=== PATIENT | male | born 1990 | race Caucasian/White ===

== ENCOUNTER 2022-01-15 13:14 | Emergency (ER) | payer OTHER, SELFPAY ==
--- NOTE | ~2022-01-15 | CT_ITS ---
EXAMINATION: CT FACIAL BONES WITH CONTRAST CLINICAL INFORMATION: Right jaw swelling. COMPARISON: None TECHNIQUE: Axial images were obtained through the facial bones following the intravenous administration of 85 mL Omnipaque 350 contrast. Coronal and sagittal reformatted images generated. This CT examination was performed using dose optimization techniques as appropriate, variously including the following: *Automated exposure control *Adjustment of mA and/or kV according to patient size (this includes techniques or standardized protocols for targeted exams where dose is matched to indication/reason for exam; i.e. extremities or head) *Use of iterative reconstruction technique DLP: 295 mGy-cm FINDINGS: No acute facial bone fracture. Mucous retention cyst in the bilateral maxillary air trauma, largest on the left measuring approximately 2.3 cm in size. Paranasal sinuses otherwise normally aerated. Mastoid air cells normally aerated. Globes and retro-orbital structures intact. Subtle large bilobed peripherally enhancing structure consistent with a large abscess at the angle of the mandible that measures approximately 4.6 x 3 cm in transverse dimension. The collection straddles the angle the mandible exerting mass effect on the posterior right floor the mouth and oropharynx, which is partially effaced and slightly displaced leftward. The external portion of the collection extends into the masseter muscle. There is extensive overlying subcutaneous edema and thickening of the right platysma muscle. Findings associated with extensive dental caries throughout the maxillary mandibular teeth. There is periapical lucency with dehiscence of the lingual surface of the mandible involving the root of the right second molar tooth consistent with dental abscess. Visualized intracranial contents are grossly unremarkable-limited assessment. Asymmetrically prominent right cervical and submandibular lymph nodes, likely reactive. No fracture or suspicious osseous lesion. CT/CT facial bones w IV con IMPRESSION: 1. Large bilobed/dumbbell shaped abscess centered around the angle of the right mandible exerting mass effect on the posterior right floor of mouth and oropharynx extending superficially within the masseter muscle, presumably related to a dental abscess of an adjacent right second maxillary molar tooth. 2. Extensive subcutaneous edema in the right base and neck with thickening of the platysma muscle and reactive right cervical lymphadenopathy.
[2022-01-15 14:40] VITALS: BP 128/68; PULSE 61; RESP 16; TEMP 37.8; O2SAT 93; BMI 30.4
--- NOTE | 2022-01-15 15:18 | ED_ITS ---
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 They have not seen a dentist for this. Patient has had increased swelling to the right lower jaw. He went to another local hospital 4 days ago and has been on antibiotics no previous visits here. MD Complaint: tooth pain Teeth map: 1. Related Data Allergies Allergy/AdvReac Type Severity Reaction Status Date / Time No Known Allergies Allergy Unverified 12/29/19 19:29 [No Known Allergies*] Review of Systems Review of Systems: Review of systems: General: Patient denies any fever chills recent illness or falls Musculoskeletal: Denies back pain or body aches or other injuries HEENT: Right lower dental pain spitting into a cup denies headache, runny nose, ear pain Respiratory: denies shortness of breath, cough Cardiovascular: no chest pain or palpitations : denies dysuria, frequency Abdomen: no nausea vomiting denies abdominal pain Extremities: no swelling, no pain Skin: no diaphoresis Yes all other systems are reviewed and are negative [facility] Past Medical History Medical History (Updated 01/15/22 @ 18:37 by Bejni Avendano DO) Heart murmur Social History Social History Alcohol intake: current Alcohol intake frequency: 0-2 drinks per day Alcohol type: hard liquor Patient Tobacco Use Status: Current everyday Tobacco user Use of substances other than those prescribed or required for medical reasons: Yes Substance Use Type: Crack/Cocaine and Heroin Advance Directives: No Advance Directives Information Provided: No Physical Exam Vital Signs: Vital Signs: Last Vital Signs Temp 100.1 F 01/15/22 14:40 Pulse 60 01/15/22 16:04 Resp 14 01/15/22 16:04 BP 125/66 01/15/22 16:04 Pulse Ox 96 01/15/22 16:04 O2 Del Method 01/15/22 16:04 BMI result Body Mass Index 30.4 General: somnolent sleeping in no signs of distress HEENT: Normocephalic atraumatic right jaw swollen tender he is able to open his mouth no swelling under his tongue discharge from right posterior lower jaw with swelling seen when looking at face concerning for abscess Neck: No signs of JVD, no masses no tenderness or lymphadenopathy Cardiovascular: Regular rate and rhythm Respiratory: Clear to auscultation bilaterally Abdomen: Soft nontender no masses Extremities: Normal pedal pulses no signs of edema Skin: Dry warm no rashes Back: No tenderness full ROM MDM - Dental/Oral MDM Narrative Medical decision making narrative: Concern for dental abscess we don't have dental here. He is far too sleepy as well he has track mariano on both hands as well. I will give some narcan to wake him up. I will give fluids check labs blood cultures lactic acid cbc and send for CT facial bones. He want to another hospital a few days go for antibiotics. Labs look remarkably good no lactic acidosis normal WBC count he has non specific inflammatory marker elevation. He is also asking for food. 182 CT shows large abscess extending into right mandible likely for mouth and oropharynx. 182 Call to [facility] they are closed to transfers at this time. 182 I spoke with [facility] about potential transfer for OMF or dental. They accepted the patient Dr. Mane Differential Diagnosis Differential diagnosis: Likely dental caries, toothache, dental abscess and fracture of tooth Medical Records Attestation: I reviewed the patient's medical records. Lab Data Result diagrams: 01/15/22 15:58 01/15/22 15:58 Labs: Lab Results 01/15/22 01/15/22 01/15/22 Range/Units 15:40 15:58 15:58 WBC 8.5 (4.8-10.8) X10*3/uL RBC 4.42 L (4.60-5.80) X10*6/uL Hgb 13.2 L (14.0-18.0) g/dl Hct 39.1 L (42.0-52.0) % MCV 88.5 (80.0-98.0) fL MCH 29.9 (27.0-33.0) pg MCHC 33.8 (31.0-36.0) g/dl RDW 13.5 (11.0-16.0) % Plt Count 224 (160-400) X10*3/uL MPV 9.5 (9.4-12.4) fL Immature Gran % (Auto) 0.4 (0.0-0.4) % Neut % (Auto) 65.6 (45-73) % Lymph % (Auto) 22.6 (20-40) % Hickman % (Auto) 11.0 (2-11) % Eos % (Auto) 0.2 (0-4) % Baso % (Auto) 0.2 (0-2) % Lymph # (Auto) 1.9 (1.2-4.9) X10*3/uL Hickman # (Auto) 0.9 (0.1-1.2) X10*3/uL Eos # (Auto) 0.0 (0.0-0.4) X10*3/uL Baso # (Auto) 0.0 (0.0-0.2) X10*3/uL Abs Immat Gran (auto) 0.03 (0.00-0.03) X10*3/uL Absolute Neuts (auto) 5.6 (2.0-8.3) x10*3/uL Absolute Nucleated RBC 0.000 (0.0-0.012) X10*3/uL Nucleated RBC % (auto) 0.0 (0.0-0.2) /100WBC ESR 83 H (0-15) MM/HR Sodium (135-145) mmol/L Potassium (3.3-5.1) mmol/L Chloride (96-108) mmol/L Carbon Dioxide (22-29) mmol/L Anion Gap (12-20) BUN (9-16) mg/dL Creatinine (0.5-1.4) mg/dL Estim Creat Clear Calc Estimated GFR Random Glucose (60-115) mg/dL Lactic Acid (0.5-2.0) mmol/L Calcium (8.4-10.2) mg/dL Total Bilirubin (0.0-1.0) mg/dL AST (5-37) U/L ALT (0-40) U/L Alkaline Phosphatase (39-117) U/L Total Protein (6.5-8.0) g/dL Albumin (3.5-5.0) g/dL COVID-19 (TIMO) Negative (Negative) COVID-19 Clin Com See Note 01/15/22 01/15/22 Range/Units 15:58 15:58 WBC (4.8-10.8) X10*3/uL RBC (4.60-5.80) X10*6/uL Hgb (14.0-18.0) g/dl Hct (42.0-52.0) % MCV (80.0-98.0) fL MCH (27.0-33.0) pg MCHC (31.0-36.0) g/dl RDW (11.0-16.0) % Plt Count (160-400) X10*3/uL MPV (9.4-12.4) fL Immature Gran % (Auto) (0.0-0.4) % Neut % (Auto) (45-73) % Lymph % (Auto) (20-40) % Hickman % (Auto) (2-11) % Eos % (Auto) (0-4) % Baso % (Auto) (0-2) % Lymph # (Auto) (1.2-4.9) X10*3/uL Hickman # (Auto) (0.1-1.2) X10*3/uL Eos # (Auto) (0.0-0.4) X10*3/uL Baso # (Auto) (0.0-0.2) X10*3/uL Abs Immat Gran (auto) (0.00-0.03) X10*3/uL Absolute Neuts (auto) (2.0-8.3) x10*3/uL Absolute Nucleated RBC (0.0-0.012) X10*3/uL Nucleated RBC % (auto) (0.0-0.2) /100WBC ESR (0-15) MM/HR Sodium 137 (135-145) mmol/L Potassium 3.9 (3.3-5.1) mmol/L Chloride 99 (96-108) mmol/L Carbon Dioxide 24 (22-29) mmol/L Anion Gap 18 (12-20) BUN 10 (9-16) mg/dL Creatinine 0.79 (0.5-1.4) mg/dL Estim Creat Clear Calc 145.4 Estimated GFR > 60 Random Glucose 95 (60-115) mg/dL Lactic Acid 1.0 (0.5-2.0) mmol/L Calcium 8.8 (8.4-10.2) mg/dL Total Bilirubin 0.7 (0.0-1.0) mg/dL AST 32 (5-37) U/L ALT 26 (0-40) U/L Alkaline Phosphatase 73 (39-117) U/L Total Protein 8.8 H (6.5-8.0) g/dL Albumin 4.0 (3.5-5.0) g/dL COVID-19 (TIMO) (Negative) COVID-19 Clin Com Critical Care Time Critical Care Time Critical Care Time: Yes Total Critical Care Time: 38 Attestation: Patient with obvius abscess likely under the influence as he slept the entire time in the eD found to have a large abscess requiring transfer to dental absess extending into mandible., Call to multiple hospitals for transfer. Discharge Plan Discharge Clinical Impression: Dental caries, Abscess of mandible Patient Disposition: Xfer Acute Care Hospital Transfer Details: Transfer for OMF vs dental for abscess
[2022-01-15] MEDS: 0.9 % Sodium Chloride 1,000 ML 999 ML IV (15:41)
[2022-01-15] MEDS: Ibuprofen 400 MG TABLET PO (16:03)
[2022-01-15 16:04] VITALS: BP 125/66; PULSE 60; RESP 14; O2SAT 96
[2022-01-15 16:04] LABS: COVID-19 Test Negative (Negative)
[2022-01-15] MEDS: Acetaminophen 325 MG TABLET 650 MG PO (16:04)
[2022-01-15] MEDS: Clindamycin Phosphate/D5W 600 MG/50 ML PIGGYBACK 100 MG IV (16:04)
[2022-01-15 16:07] LABS: MANUAL DIFF FLAG NO
[2022-01-15 16:13] LABS: Basophils Percent Auto 0.2 % (0-2); Eosinophils Percent Auto 0.2 % (0-4); Hematocrit 39.1 % (42.0-52.0); Hemoglobin 13.2 g/dl (14.0-18.0); Imm Gran Abs Auto 0.03 X10*3/uL (0.00-0.03); Imm Gran Pct Auto 0.4 % (0.0-0.4); Lymphocytes Absolute Auto 1.9 X10*3/uL (1.2-4.9); Lymphocytes Percent Auto 22.6 % (20-40); Mean Corpuscular HGB Conc 33.8 g/dl (31.0-36.0); Mean Corpuscular Hemoglobin 29.9 pg (27.0-33.0); Mean Corpuscular Volume 88.5 fL (80.0-98.0); Mean Platelet Volume 9.5 fL (9.4-12.4); Monocytes Absolute Auto 0.9 X10*3/uL (0.1-1.2); Neutrophils Absolute Auto 5.6 x10*3/uL (2.0-8.3); Neutrophils Percent Auto 65.6 % (45-73); Platelet Count 224 X10*3/uL (160-400); Red Blood Count 4.42 X10*6/uL (4.60-5.80); Red Cell Distribution Width 13.5 % (11.0-16.0); White Blood Count 8.5 X10*3/uL (4.8-10.8)
[2022-01-15 16:30] LABS: Alanine Aminotransferase 26 U/L (0-40); Alkaline Phosphatase 73 U/L (39-117); Anion Gap 18 (12-20); Aspartate Amino Transferase 32 U/L (5-37); Bilirubin Total 0.7 mg/dL (0.0-1.0); Blood Urea Nitrogen 10 mg/dL (9-16); Calcium 8.8 mg/dL (8.4-10.2); Carbon Dioxide 24 mmol/L (22-29); Chloride 99 mmol/L (96-108); Creatinine Clr Calc Pharmacy 145.4; Estimated Glomerular Filt Rate > 60; Glucose Random 95 mg/dL (60-115); Potassium 3.9 mmol/L (3.3-5.1); Sodium 137 mmol/L (135-145); Total Protein 8.8 g/dL (6.5-8.0)
[2022-01-15 16:54] LABS: Erythrocyte Sedimentation Rate 83 MM/HR (0-15)
[2022-01-15] MEDS: iohexoL 350 MG/ML 100 ML INFUS..BTL IV (17:24)
--- NOTE | 2022-01-15 19:03 | PC.NURSE ---
This Us /Pct got report that patient is being transferred to [facility] ED to ED. At 1902 Juan called for a BLS transfer ETA within the hour. RN aware
[2022-01-15] MEDS: Ampicillin Sodium/Sulbactam Na 3 GM in 0.9 % Sodium Chloride 100 ML IV (19:10)
[2022-01-15] MEDS: vancomycin HCL 1,500 MG in 0.9 % Sodium Chloride 500 ML 333.33 MG IV (19:49)
[2022-01-15 19:58] VITALS: BP 114/63; PULSE 47; RESP 15; O2SAT 94
--- NOTE | 2022-01-15 20:05 | PC.NURSE ---
EMS arrived at 2002 for transport. rn aware
--- NOTE | 2022-01-15 20:17 | PC.NURSE ---
EMS here to order picker pt. IV Vancomycin dose not complete. Per MD Juan Alberto - OK to disconnect Vanco. dose and not finish it d/t transport. Will inform [facility] that total dose was not given when report is called momentarily
--- NOTE | 2022-01-15 20:30 | PC.NURSE ---
Error in last RN note - pt. is being transferred to [facility] ED, not [facility] ED as mentioned in last note. Nurse to nurse just called to [facility] ED to TYRONE Muhammad.
== END 2022-01-15 20:15 | disposition short-term general hospital (02) ==
PROVIDERS: Emergency Provider Student in an Organized Health Care Education/Training Program
DX: K02.9 Dental caries, unspecified (principal); M27.2 Inflammatory conditions of jaws; Z20.822 Contact with and (suspected) exposure to COVID-19; Z79.899 Other long term (current) drug therapy
CPT/HCPCS: 70487; 80053; 83605; 85025; 85652; 87040; 87635; 96361; 96374; 96375; 99285; J0295; J3370; Q9967